=== PATIENT | male | born 1990 | race Caucasian/White ===

== ENCOUNTER → 2016-09-05 | Outpatient (CLI) | payer BC ==
[2016-09-05 08:56] VITALS: BP 124/85
[2016-09-05 11:23] VITALS: BP 122/78
== END ==
LOC: ED 08:32 → EDSTATUS 08:39 → AMSURD 08:47
DX: E86.0 Dehydration (principal); R11.2 Nausea with vomiting, unspecified
CPT/HCPCS: J2405; J7120